=== PATIENT | female | born 1995 | race Caucasian/White ===

== ENCOUNTER 2017-08-30 12:12 | Emergency (ER) | END 2017-08-30 14:04 | disposition home or self-care (01) ==

== ENCOUNTER 2018-01-10 08:19 | Emergency (ER) | END 2018-01-10 09:55 | disposition home or self-care (01) ==

== ENCOUNTER 2018-01-10 10:05 | Outpatient (CLI) | END 2018-01-10 13:15 | disposition home or self-care (01) ==